=== PATIENT | female | born 1990 | race Caucasian/White ===

== ENCOUNTER 2020-02-20 22:46 | Emergency (ER) | payer MEDICAID ==
--- NOTE | 2020-02-20 23:44 | EDM.PDOC ---
ED HPI GENERAL MEDICAL PROBLEM - General Chief Complaint: Lower Extremity Injury/Pain Stated Complaint: R KNEE PAIN Time Seen by Provider: 02/20/20 23:39 Source of Information: Reports: Patient, RN Notes Reviewed History Limitations: Reports: No Limitations - History of Present Illness INITIAL COMMENTS - FREE TEXT/NARRATIVE: 29-year-old female presents emergency department with a complaint of right knee pain, she injured herself in a softball game possibly with a twisting injury on the right knee, was able to finish the game however after the game increasing pain to the point where she has difficulty ambulating and bearing weight Right Knee Pain Score (Numeric/FACES): 6 - Related Data Allergies Allergy/AdvReac Type Severity Reaction Status Date / Time amoxicillin Allergy Swelling Verified 02/20/20 23:25 Home Meds: Home Meds norethindrone ac-eth estradioL [Norethind-Eth Estrad 0.5-2.5] 1 each PO DAILY 02/20/20 [History] Past Medical History Musculoskeletal History: Reports: Fracture Other Musculoskeletal History: fx right pinky - Past Surgical History HEENT Surgical History: Reports: Adenoidectomy, Tonsillectomy Female Surgical History: Reports: Cystectomy Social & Family History - Tobacco Use Smoking Status *Q: Never Smoker - Caffeine Use Caffeine Use: Reports: Coffee, Energy Drinks - Recreational Drug Use Recreational Drug Use: No Review of Systems - Review of Systems Review Of Systems: See Below Musculoskeletal: Reports: Joint Pain (Right knee) Skin: Reports: No Symptoms ED EXAM, GENERAL - Physical Exam Exam: See Below Free Text/Narrative:: Examination the right knee I do not appreciate any erythema there is no edema I cannot elicit any pain with any valgus or valgus maneuvers anterior drawer is negative Lockman's is negative Exam Limited By: No Limitations General Appearance: Alert, WD/WN, No Apparent Distress Course - Vital Signs Last Recorded V/S: Last Vital Signs Temp 98.1 F 02/20/20 23:26 Pulse 107 H 02/20/20 23:26 Resp 20 02/20/20 23:26 BP 187/89 H 02/20/20 23:26 Pulse Ox 98 02/20/20 23:26 - Orders/Labs/Meds Orders: Active Orders 24 hr Category Date Time Status Knee 3V Rt [CR] Stat Exams 02/21/20 00:01 Taken Departure - Departure Time of Disposition: 01:05 Disposition: Home, Self-Care 01 Condition: Fair Clinical Impression: Right knee sprain Qualifiers: Encounter type: initial encounter Involved ligament of knee: unspecified ligament Qualified Code(s): S83.91XA - Sprain of unspecified site of right knee, initial encounter - Discharge Information Instructions: Knee Sprain, Adult, [id number] Referrals: PCP,None [Primary Care Provider] - Forms: ED Department Discharge Additional Instructions: Continue with rest ice nonsteroidal anti-inflammatories as needed for pain control continue to use the wrap and crutches as needed for comfort please followup with your primary care provider in 3-5 days if not better, please call return to the emergency department with worsening of symptoms. Sepsis Event Note (ED) - Evaluation Sepsis Screening Result: No Definite Risk - Focused Exam Vital Signs: Vital Signs Temp Pulse Resp BP Pulse Ox 02/20/20 23:26 98.1 F 107 H 20 187/89 H 98 - My Orders Last 24 Hours: My Active Orders 02/21/20 00:01 Knee 3V Rt [CR] Stat - Assessment/Plan Last 24 Hours: My Active Orders 02/21/20 00:01 Knee 3V Rt [CR] Stat Plan: Assessment Acuity = acute Site and laterality = right knee strain Etiology = secondary to sports injury Manifestations = none Location of injury = Home Lab values = knee x-ray I did review films myself I cannot appreciate any acute process, the official read from radiology is pending Plan Continue with rest ice nonsteroidal anti-inflammatories Brennen wrap follow-up primary care 3 to 5 days if not better This note was dictated using [employer] voice recognition software please call with any questions on syntax or grammar.
--- NOTE | 2020-02-21 09:07 | CR ---
Knee 3V Rt CLINICAL HISTORY: Pain, twisting injury FINDINGS: No acute fracture or dislocation is noted. There are no osseous lesions. Joint spaces are fairly well-maintained. There is some periarticular spurring. Impression: Mild osteoarthritic change No fracture
== END 2020-02-21 01:41 | disposition home or self-care (01) ==
LOC: JP.ED 22:46
DX: S83.91XA Sprain of unspecified site of right knee, initial encounter (principal); X50.1XXA Overexertion from prolonged static or awkward postures, initial encounter; Y93.64 Activity, baseball
CPT/HCPCS: 73562-26-RT; 73562-RT; 99283-25

== ENCOUNTER 2022-09-08 07:26 | Day surgery (SDC) | payer MEDICAID, OTHER ==
[~2022-09-08 07:26] MED LIST: Lidocaine 1% with EPINEPHrine 1:100,000 50 ML MDV ONE
[2022-09-08] MEDS ORDERED: Midazolam 1 MG/ML 2 ML SDV ONE (07:28)
[2022-09-08] MEDS ORDERED: fentaNYL 100 MCG/2 ML SDV ONE (07:28)
[2022-09-08] MEDS ORDERED: Propofol 200 MG/20 ML SDV ONE ×4 (07:28→09:28)
[2022-09-08] MEDS ORDERED: Sodium Chloride 0.9% 1,000 ML IV SCH (08:00)
[2022-09-08] MEDS ORDERED: Lidocaine 1% w/EPINEPHrine 50 ML, Sodium Bicarbonate 5 MEQ in Sodium Chloride 0.9% 950 ML INJECT ONE (08:45)
== END 2022-09-08 10:51 | disposition home or self-care (01) ==
LOC: JP.SDS 07:26
PROVIDERS: ATTEND Surgery
DX: I83.11 Varicose veins of right lower extremity with inflammation (principal); R10.32 Left lower quadrant pain; E66.9 Obesity, unspecified; Z79.899 Other long term (current) drug therapy; Z91.030 Bee allergy status; Z88.0 Allergy status to penicillin; Z98.890 Other specified postprocedural states; Z87.19 Personal history of other diseases of the digestive system; Z68.39 Body mass index [BMI] 39.0-39.9, adult
CPT/HCPCS: 36475; 81025; J1642; J2250; J2704; J3010; J7030; J3490